=== PATIENT | female | born 1975 | race Caucasian/White ===

== ENCOUNTER 2018-04-14 13:09 | Emergency (ER) | payer MEDICAID ==
[~2018-04-14] VITALS: Ht 147.3 cm; Wt 76.4 kg
[~2018-04-14 13:09] MED LIST: DIPHENHYDRAMINE25 MG PO; EXCEDRIN1 TAB PO; MEDROL 4MG DOSPA4 MG PO; MOTRIN 200200 MG/TAB PO; NO HOME MEDICATIONS; PEN-VEE K250 MG PO; PRENATAL1 TA2 PO; SLOW FE45 MG PO; [UNRECOGNIZED DRUG - OTHER] PO
[2018-04-14 13:14] VITALS: BP 140/91; TEMP 98.7
[2018-04-14 13:25] LABS: COLLECTION METHOD CLEAN CATCH
[2018-04-14 13:50] LABS: PH 6 (5-8); URINE APPEARANCE Cloudy; URINE BACTERIA Rare /hpf; URINE BILIRUBIN Negative (NEGATIVE); URINE BLOOD 2+ (NEGATIVE); URINE COLOR Amber; URINE GLUCOSE Negative (NEGATIVE); URINE KETONE Negative (NEGATIVE); URINE LEUKOCYTE ESTERASE 2+ (NEGATIVE); URINE NITRATE Negative (NEGATIVE); URINE PROTEIN(semi-quant) 2+ (NEGATIVE); URINE RBC >50 /hpf; URINE UROBILINOGEN Negative (NEGATIVE)
[2018-04-14] MEDS ORDERED: PYRIDIUM 100MG100 MG PO (14:18)
[2018-04-14] MEDS ORDERED: OMNICEF 300MG300 MG PO (14:18)
[2018-04-14] MEDS ORDERED: FLOMAX 0.40.4 MG/CAP PO (15:27)
[2018-04-14] MEDS ORDERED: NORCO 325 MG-51 TAB PO (15:28)
[2018-04-14 16:10] VITALS: PULSE 84
== END 2018-04-14 16:11 | disposition home or self-care (01) ==
LOC: COL.ER 13:09
PROVIDERS: Emergency Medicine
DX: N20.0 Calculus of kidney (principal); K80.20 Calculus of gallbladder without cholecystitis without obstruction; G95.89 Other specified diseases of spinal cord; N39.0 Urinary tract infection, site not specified; E03.9 Hypothyroidism, unspecified; Z98.51 Tubal ligation status
CPT/HCPCS: J0696

== ENCOUNTER 2018-06-25 05:24 | Emergency (ER) | payer MEDICAID ==
[~2018-06-25] VITALS: Ht 147.3 cm; Wt 78.2 kg
[~2018-06-25 05:24] MED LIST changes: +FLOMAX 0.40.4 MG/CAP PO; +NORCO 325 MG-51 TAB PO; +OMNICEF 300MG300 MG PO; +PYRIDIUM 100MG100 MG PO
[2018-06-25] MEDS ORDERED: SYNTHROID0.05 MG/TA PO (05:32)
[2018-06-25] MEDS ORDERED: VITAMIN D 1001000 IU (05:33)
[2018-06-25 05:41] LABS: COLLECTION METHOD CLEAN CATCH
[2018-06-25 05:52] LABS: PH 7 (5-8); SQUAMOUS EPITHELIAL 0-2 /hpf; URINE APPEARANCE Clear; URINE BACTERIA Rare /hpf; URINE BILIRUBIN Negative (NEGATIVE); URINE BLOOD 3+ (NEGATIVE); URINE COLOR Amber; URINE GLUCOSE Negative (NEGATIVE); URINE KETONE Negative (NEGATIVE); URINE LEUKOCYTE ESTERASE 3+ (NEGATIVE); URINE NITRATE Negative (NEGATIVE); URINE PROTEIN(semi-quant) 2+ (NEGATIVE); URINE RBC 20-50 /hpf; URINE UROBILINOGEN Negative (NEGATIVE); URINE WBC >50 /hpf
[2018-06-25] MEDS ORDERED: FLOMAX 0.40.4 MG/CAP PO ×2 (06:02)
[2018-06-25 06:17] LABS: BASO % 0.5 % (0.0-2.0); EOS # 0.1 (0.0-0.7); EOS % 2.2 % (0-4.0); GRAN # 4.3 (1.4-6.5); GRAN % 66.4 % (42.2-75.2); HEMOGLOBIN 12.5 g/dl (12.5-16.0); LYMPH # 1.6 (1.2-3.4); LYMPH % 24.5 % (20.0-51.0); MEAN CELL VOLUME 86 fl (80.0-100.0); MEAN CORPUSCULAR HEMOGLOBIN 29 pg (27.0-31.0); MEAN CORPUSCULAR HGB CONC 34 g/dl (33.0-37.0); MEAN PLATELET VOLUME 10.3 fl (7.4-10.4); MONO # 0.4 (0.1-0.6); MONO % 6.2 % (1.7-9.3); PLATELET COUNT 206 K/mm3 (130-400); RED BLOOD COUNT 4.25 M/mm3 (4.10-5.30); REDCELL DISTRIBUTION WIDTH-CV 12.1 % (11.5-14.5)
[2018-06-25] MEDS ORDERED: OMNICEF 300MG300 MG PO ×2 (06:19)
[2018-06-25 06:21] LABS: HEMATOCRIT 36.6 % (37.0-47.0)
[2018-06-25 06:26] LABS: CALCIUM 9.1 mg/dL (8.4-10.2); CREATININE, serum 0.57 mg/dL (0.52-1.25); POTASSIUM 3.9 mmol/L (3.4-5.0)
[2018-06-25] MEDS ORDERED: MACROBID 1100 MG/CAP PO (07:38)
[2018-06-25 07:49] VITALS: BP 107/54; PULSE 79
== END 2018-06-25 07:56 | disposition home or self-care (01) ==
LOC: COL.ER 05:24
PROVIDERS: Emergency Medicine
DX: R10.9 Unspecified abdominal pain (principal); R31.9 Hematuria, unspecified; Z87.442 Personal history of urinary calculi
CPT/HCPCS: A4216; J0696; J1200; J1885; J2405; J7030

== ENCOUNTER 2020-02-11 17:12 | Emergency (ER) | payer MEDICAID ==
[~2020-02-11] VITALS: Ht 147.3 cm; Wt 80.9 kg
[~2020-02-11 17:12] MED LIST changes: +MACROBID 1100 MG/CAP PO; +SYNTHROID0.05 MG/TA PO; +VITAMIN D 1001000 IU
[2020-02-11 17:29] VITALS: TEMP 98.3
[2020-02-11 18:04] LABS: BASO # 0.1 (0.0-0.2); BASO % 0.7 % (0.0-2.0); EOS # 0.2 (0.0-0.7); EOS % 2.3 % (0-4.0); GRAN # 4.5 (1.4-6.5); GRAN % 63.8 % (42.2-75.2); HEMATOCRIT 40.4 % (37.0-47.0); HEMOGLOBIN 13.3 g/dl (12.5-16.0); INR 1.1 (0.8-3.0); LYMPH # 1.9 (1.2-3.4); LYMPH % 27.4 % (20.0-51.0); MEAN CELL VOLUME 88 fl (80.0-100.0); MEAN CORPUSCULAR HEMOGLOBIN 29 pg (27.0-31.0); MEAN CORPUSCULAR HGB CONC 33 g/dl (33.0-37.0); MEAN PLATELET VOLUME 10.3 fl (7.4-10.4); MONO # 0.4 (0.1-0.6); MONO % 5.5 % (1.7-9.3); PLATELET COUNT 239 K/mm3 (130-400); PROTHROMBIN TIME 11.8 SECONDS (9.7-12.8); RED BLOOD COUNT 4.57 M/mm3 (4.10-5.30)
[2020-02-11 18:14] LABS: ALANINE AMINOTRANSFERASE 40 U/L (4-34); ALBUMIN 4.6 gm/dL (3.5-5.0); ALKALINE PHOSPHATASE 89 U/L (50-136); ANION GAP 8 mmol/L (7-16); AST,SGOT 30 U/L (15-37); BILIRUBIN,TOTAL 0.7 mg/dL (0.0-1.0); BLOOD UREA NITROGEN 12 mg/dL (7-17); CALCIUM 9.7 mg/dL (8.4-10.2); CARBON DIOXIDE 26 mmol/L (22-30); CHLORIDE 105 mmol/L (98-107); CREATININE, serum 0.68 (0.52-1.25); GLUCOSE 95 mg/dL (74-106); SODIUM 139 mmol/L (137-145); TOTAL PROTEIN 8.4 gm/dL (6.4-8.2)
[2020-02-11 18:21] LABS: C-REACTIVE PROTEIN < 0.5 mg/dL (0.0-0.9)
[2020-02-11 18:25] LABS: TROPONIN-I < 0.012 ng/mL (0.000-0.035)
[2020-02-11 20:35] VITALS: BP 118/72; PULSE 88
== END 2020-02-11 20:36 | disposition home or self-care (01) ==
LOC: COL.ER 17:12
PROVIDERS: Emergency Medicine
DX: T80.89XA Other complications following infusion, transfusion and therapeutic injection, initial encounter (principal); R06.02 Shortness of breath; R07.9 Chest pain, unspecified; E89.0 Postprocedural hypothyroidism; Z79.890 Hormone replacement therapy; Z90.49 Acquired absence of other specified parts of digestive tract; Z90.89 Acquired absence of other organs
CPT/HCPCS: J7030; Q9967

== ENCOUNTER 2020-02-12 20:17 | Emergency (ER) | payer MEDICAID ==
[~2020-02-12] VITALS: Ht 147.3 cm; Wt 80.5 kg
[2020-02-12 20:22] VITALS: TEMP 98.7
[2020-02-12 21:07] VITALS: BP 147/80; PULSE 77
== END 2020-02-12 21:09 | disposition home or self-care (01) ==
LOC: COL.ER 20:17
DX: R23.8 Other skin changes (principal); E03.9 Hypothyroidism, unspecified; Z79.890 Hormone replacement therapy

== ENCOUNTER 2020-06-16 16:17 | Emergency (ER) | payer MEDICAID ==
[~2020-06-16] VITALS: Ht 147.3 cm; Wt 81.8 kg
[2020-06-16 16:22] VITALS: BP 133/79; TEMP 98.3
[2020-06-16 16:32] LABS: COLLECTION METHOD CLEAN CATCH
[2020-06-16 16:37] LABS: PH 6 (5-8); SQUAMOUS EPITHELIAL 0-2 /hpf; URINE APPEARANCE Clear; URINE BACTERIA None Seen /hpf; URINE BILIRUBIN Negative (NEGATIVE); URINE BLOOD 3+ (NEGATIVE); URINE COLOR Colorless; URINE GLUCOSE Negative (NEGATIVE); URINE KETONE Negative (NEGATIVE); URINE LEUKOCYTE ESTERASE Negative (NEGATIVE); URINE NITRATE Negative (NEGATIVE); URINE PROTEIN(semi-quant) Negative (NEGATIVE); URINE RBC 0-2 /hpf; URINE UROBILINOGEN Negative (NEGATIVE)
[2020-06-16 18:37] VITALS: PULSE 88
== END 2020-06-16 18:35 | disposition home or self-care (01) ==
LOC: COL.ER 16:17
PROVIDERS: Nurse Practitioner Primary Care
DX: R31.9 Hematuria, unspecified (principal); B34.9 Viral infection, unspecified; M46.1 Sacroiliitis, not elsewhere classified; Z90.49 Acquired absence of other specified parts of digestive tract; Z32.02 Encounter for pregnancy test, result negative; Z87.442 Personal history of urinary calculi
CPT/HCPCS: J2405; J7030; Q9967

== ENCOUNTER 2020-07-04 14:59 | Emergency (ER) | payer MEDICAID ==
[~2020-07-04] VITALS: Ht 121.9 cm; Wt 79.5 kg
[2020-07-04 15:05] VITALS: BP 130/83; TEMP 99
[2020-07-04 15:54] LABS: BASO % 0.9 % (0.0-2.0); EOS % 1.8 % (0-4.0); GRAN # 1.2 (1.4-6.5); GRAN % 52.7 % (42.2-75.2); HEMATOCRIT 39.7 % (37.0-47.0); HEMOGLOBIN 13.3 g/dl (12.5-16.0); LYMPH # 0.7 (1.2-3.4); LYMPH % 33.5 % (20.0-51.0); MEAN CELL VOLUME 87 fl (80.0-100.0); MEAN CORPUSCULAR HEMOGLOBIN 29 pg (27.0-31.0); MEAN CORPUSCULAR HGB CONC 34 g/dl (33.0-37.0); MEAN PLATELET VOLUME 9.7 fl (7.4-10.4); MONO # 0.2 (0.1-0.6); MONO % 10.6 % (1.7-9.3); PLATELET COUNT 194 K/mm3 (130-400); RED BLOOD COUNT 4.58 M/mm3 (4.10-5.30)
[2020-07-04 16:03] LABS: ALANINE AMINOTRANSFERASE 37 U/L (4-34); ALBUMIN 4.4 gm/dL (3.5-5.0); ALKALINE PHOSPHATASE 67 U/L (50-136); ANION GAP 11 mmol/L (7-16); AST,SGOT 32 U/L (15-37); BILIRUBIN,TOTAL 0.3 mg/dL (0.0-1.0); BLOOD UREA NITROGEN 10 mg/dL (7-17); CALCIUM 9.3 mg/dL (8.4-10.2); CARBON DIOXIDE 24 mmol/L (22-30); CHLORIDE 106 mmol/L (98-107); CREATININE, serum 0.67 (0.52-1.25); GLUCOSE 111 mg/dL (74-106); LIPASE 59 U/L (23-300); POTASSIUM 3.5 mmol/L (3.4-5.0); SODIUM 140 mmol/L (137-145); TOTAL PROTEIN 7.8 gm/dL (6.4-8.2)
[2020-07-04 16:12] LABS: COLLECTION METHOD CLEAN CATCH
[2020-07-04 16:26] LABS: MUCOUS Present /lpf; PH 6 (5-8); URINE APPEARANCE Clear; URINE BACTERIA Rare /hpf; URINE BILIRUBIN Negative (NEGATIVE); URINE BLOOD Negative (NEGATIVE); URINE COLOR Yellow; URINE GLUCOSE Negative (NEGATIVE); URINE KETONE Negative (NEGATIVE); URINE LEUKOCYTE ESTERASE Negative (NEGATIVE); URINE NITRATE Negative (NEGATIVE); URINE PROTEIN(semi-quant) Negative (NEGATIVE); URINE RBC 0-2 /hpf; URINE UROBILINOGEN Negative (NEGATIVE); URINE WBC 0-2 /hpf
[2020-07-04 16:28] LABS: TROPONIN-I < 0.012 ng/mL (0.000-0.035)
[2020-07-04] MEDS ORDERED: TYLENOL 325MG325 MG PO (16:39)
[2020-07-04 17:00] VITALS: PULSE 61
== END 2020-07-04 17:00 | disposition home or self-care (01) ==
LOC: COL.ER 14:59
PROVIDERS: Emergency Medicine
DX: R07.9 Chest pain, unspecified (principal); R53.83 Other fatigue; R06.02 Shortness of breath

== ENCOUNTER → 2023-07-07 | Outpatient (CLI) | payer MEDICAID ==
[~2023-07-07] MED LIST changes: +NIKKI1 TAB PO; +PRIL40 PO; +TYLENOL 325MG325 MG PO
== END ==
LOC: MC.RAD 10:36
DX: N60.01 Solitary cyst of right breast (principal); N63.20 Unspecified lump in the left breast, unspecified quadrant

== ENCOUNTER 2024-03-19 13:57 | Outpatient (CLI) | payer MEDICAID ==
[~2024-03-19] VITALS: Ht 147.3 cm; Wt 81.4 kg
[~2024-03-19 13:57] MED LIST changes: +AFRIN 15 ML15 ML NS; +ATARAX 25MG25 MG/TAB PO; +FLONASEALLERGY NS; +MAGNESIUM250 M1 PO; +MELATONIN5 M1 SL; +SINGULAIR 110 MG/TAB PO; -SYNTHROID0.05 MG/TA PO; +SYNTHROID0.075 MG/T PO; -VITAMIN D 1001000 IU; +VITAMIND3 5000 PO; +ZYRTEC 10MG10 MG PO
[2024-03-19] MEDS ORDERED: Omalizumab 150 MG/1 ML SYRINGE SQ SCH (14:15)
[2024-03-19 14:24] VITALS: BP 112/77; PULSE 78; TEMP 98.7
== END 2024-03-19 14:34 ==
LOC: EUO 13:57
DX: L50.9 Urticaria, unspecified (principal)
CPT/HCPCS: J2357

== ENCOUNTER 2024-04-16 13:50 | Outpatient (CLI) | payer MEDICAID ==
[~2024-04-16] VITALS: Ht 147.3 cm; Wt 82.1 kg
[2024-04-16 14:10] VITALS: BP 126/87; PULSE 112; TEMP 98.1
[2024-04-16] MEDS ORDERED: Omalizumab 150 MG/1 ML SYRINGE SQ SCH (14:15)
[2024-04-16] MEDS ORDERED: XOLAIR150 MG SQ (14:15)
--- NOTE | 2024-04-16 14:26 | NUR ---
Pt tolerated xolair injections without issue. She exits dept with steady gait. She is free of complaints at discharge.
== END 2024-04-16 14:27 | disposition home or self-care (01) ==
LOC: EUO 13:50
DX: L50.9 Urticaria, unspecified (principal)
CPT/HCPCS: J2357